=== PATIENT | female | born 1940 | race Caucasian/White ===

== ENCOUNTER 2020-12-08 08:30 | Outpatient (RCR) | payer MEDICARE, SELFPAY ==
[2020-09-16 15:44] VITALS: PULSE 55
--- NOTE | 2020-10-12 07:14 | PCCPR ---
pt [facility] 10/12 and due to breast infection- has appt with MD and plans to return 10/17
--- NOTE | 2020-10-17 12:26 | PCCPR ---
Absent until 10/24 or after... Malina states she still has an infection in her breast. She also notified the foundry engineer in regards to her BP being elevated and she states shes also been having chest pain. They are planning to do an ECHO today and then she has her follow up appt with him on the . She states she will keep us updated but if we do not hear from her I told her we'd follow up on Saturday the .
== END 2020-12-08 15:47 | disposition home or self-care (01) ==
LOC: ANHCPREHAB 08:30
PROVIDERS: PCP Internal Medicine Geriatric Medicine
DX: Z95.5 Presence of coronary angioplasty implant and graft (principal)
CPT/HCPCS: 93798